=== PATIENT | female | born 2000 ===

== ENCOUNTER → 2019-01-06 | Outpatient (CLI) | payer OTHER ==
[2019-01-06 19:47] LABS: Free Thyroxine 1.03 ng/dL (0.70-1.60); Thyroid Stimulating Hormone 0.857 uIU/mL (0.360-4.800)
== END ==
LOC: LAB SHORT 18:22 → LAB 18:22
PROVIDERS: Nurse Practitioner Family
DX: E03.9 Hypothyroidism, unspecified (principal); E55.9 Vitamin D deficiency, unspecified
CPT/HCPCS: 82306; 84439; 84443